=== PATIENT | male | born 1950 | race Caucasian/White ===

== ENCOUNTER 2020-11-16 16:50 | Day surgery (SDC) | payer MEDICARE, OTHER ==
[2020-11-16] MEDS ORDERED: Xylocaine 1% Vial 30 ML PF IJ ONE (16:51)
[2020-11-16] MEDS ORDERED: Depo-Medrol 40 MG/ML IM ONE (16:51)
[2020-11-16] MEDS ORDERED: BUPIVACAINE 0.5% VIAL IJ ONE (16:51)
--- NOTE | 2020-11-16 20:09 | XRAY ---
Indication: Left SI joint injection. Intraoperative fluoroscopy provided for 16 seconds. 2 digital spot image submitted for interpretation demonstrates posterior needle tip projecting over the inferior left SI joint. Correlate with intraoperative findings/report.
--- NOTE | 2020-11-17 08:37 | XRAY ---
16 seconds fluoroscopy time in surgery for injection of the left SI joint.
== END 2020-11-16 18:43 | disposition home or self-care (01) ==
LOC: SDC-PAIN 16:50
PROVIDERS: ATTEND Psychiatry & Neurology Pain Medicine
DX: M46.1 Sacroiliitis, not elsewhere classified (principal); F41.9 Anxiety disorder, unspecified; F32.9 Major depressive disorder, single episode, unspecified; I82.409 Acute embolism and thrombosis of unspecified deep veins of unspecified lower extremity; I25.10 Atherosclerotic heart disease of native coronary artery without angina pectoris; E11.9 Type 2 diabetes mellitus without complications; Z79.899 Other long term (current) drug therapy
CPT/HCPCS: 27096; 72100; 77002; 82947; G0260; J1030; J2001